=== PATIENT | female | born 2000 | race Asian ===

== ENCOUNTER 2020-07-13 09:54 | Emergency (ER) | payer MEDICAID ==
[~2020-07-13] VITALS: Ht 167.6 cm; Wt 71.0 kg
--- NOTE | 2020-07-13 10:14 | NUR ---
cough/chills/sore throat x 3 days appears well, vss No known exposure
--- NOTE | 2020-07-13 10:50 | NUR ---
provider to bedside-assembler unit swab obtained per protocol
[2020-07-13 10:55] VITALS: BP 128/71
--- NOTE | 2020-07-13 10:57 | NUR ---
Provided with [employer]. reviewed poc
== END 2020-07-13 10:48 | disposition home or self-care (01) ==
LOC: ED 10:47
DX: J20.8 Acute bronchitis due to other specified organisms (principal); Z20.828 Contact with and (suspected) exposure to other viral communicable diseases; B97.89 Other viral agents as the cause of diseases classified elsewhere; R05 Cough
CPT/HCPCS: 36415; 87635; 99283